=== PATIENT | female | born 1935 | race Caucasian/White ===

== ENCOUNTER 2016-06-11 14:57 | Emergency (ER) | payer MEDICARE, BC ==
[~2016-06-11] VITALS: Ht 152.4 cm; Wt 59.1 kg
[~2016-06-11 14:57] MED LIST: ASPIRIN 81M81 MG/TA2 PO; LEVOXYL0.075 MG PO; VALIUM 2MG T2 MG/TAB PO
[2016-06-11 14:59] VITALS: BP 174/91; PULSE 66; TEMP 97.7
[2016-06-11 16:04] LABS: BASO # 0.1 (0.0-0.2); EOS # 0.1 (0.0-0.7); GRAN # 6.2 (1.4-6.5); GRAN % 78.8 % (42.2-75.2); HEMATOCRIT 42.5 % (37.0-47.0); HEMOGLOBIN 13.7 g/dl (12.5-16.0); LYMPH # 1.2 (1.2-3.4); LYMPH % 15.1 % (20.0-51.0); MEAN CELL VOLUME 96 fl (80.0-100.0); MEAN CORPUSCULAR HEMOGLOBIN 31 pg (27.0-31.0); MEAN CORPUSCULAR HGB CONC 32 g/dl (33.0-37.0); MEAN PLATELET VOLUME 10.2 fl (7.4-10.4); MONO # 0.3 (0.1-0.6); MONO % 3.3 % (1.7-9.3); PLATELET COUNT 280 K/mm3 (130-400); RED BLOOD COUNT 4.44 M/mm3 (4.10-5.30); REDCELL DISTRIBUTION WIDTH-CV 13.2 % (11.5-14.5); WHITE BLOOD COUNT 7.9 K/mm3 (4.8-10.8)
[2016-06-11 16:16] LABS: ADJUSTED CALCIUM 9.2 mg/dL (8.4-10.2); ALANINE AMINOTRANSFERASE 25 U/L (9-52); ALKALINE PHOSPHATASE 90 U/L (50-136); ANION GAP 12 mmol/L (7-16); BILIRUBIN,TOTAL 0.7 mg/dL (0.0-1.0); BLOOD UREA NITROGEN 18 mg/dL (7-17); CALCIUM 9.2 mg/dL (8.4-10.2); CARBON DIOXIDE 27 mmol/L (22-30); CHLORIDE 101 mmol/L (98-107); CREATININE, serum 0.67 mg/dL (0.52-1.25); GLUCOSE 147 mg/dL (74-106); POTASSIUM 3.6 mmol/L (3.4-5.0); SODIUM 139 mmol/L (137-145); TOTAL PROTEIN 7.1 gm/dL (6.4-8.2)
[2016-06-11 16:29] LABS: TROPONIN-I < 0.012 ng/mL (0.000-0.034)
[2016-06-11 18:11] LABS: PH 7 (5-8); SQUAMOUS EPITHELIAL None Seen /hpf; URINE APPEARANCE Clear; URINE BACTERIA None Seen /hpf; URINE BILIRUBIN Negative (NEGATIVE); URINE BLOOD Negative (NEGATIVE); URINE COLOR Straw; URINE GLUCOSE Negative (NEGATIVE); URINE KETONE 1+ (NEGATIVE); URINE RBC 0-2 /hpf; URINE UROBILINOGEN Negative (NEGATIVE); URINE WBC 0-2 /hpf
[2016-06-11] MEDS ORDERED: ZOFRAN ODT4 MG PO (19:15)
[2016-06-11] MEDS ORDERED: ATIVAN 0.50.5 MG/TAB PO (19:15)
[2016-06-11] MEDS ORDERED: ANTIVERT 25MG25 MG PO (19:15)
== END 2016-06-11 19:40 | disposition home or self-care (01) ==
LOC: COL.ER 14:57
PROVIDERS: Emergency Medicine
DX: R42 Dizziness and giddiness (principal); E03.9 Hypothyroidism, unspecified; H55.00 Unspecified nystagmus; H93.19 Tinnitus, unspecified ear; Z86.73 Personal history of transient ischemic attack (TIA), and cerebral infarction without residual deficits
CPT/HCPCS: J2060; J2405; J7030

== ENCOUNTER → 2016-06-12 | Outpatient (CLI) | payer MEDICARE, BC ==
[~2016-06-12] MED LIST changes: +ANTIVERT 25MG25 MG PO; +ATIVAN 0.50.5 MG/TAB PO; +ZOFRAN ODT4 MG PO
== END ==
LOC: COL.RAD 12:53
DX: R42 Dizziness and giddiness (principal); R11.10 Vomiting, unspecified; R93.0 Abnormal findings on diagnostic imaging of skull and head, not elsewhere classified
CPT/HCPCS: A9585

== ENCOUNTER 2016-07-05 17:55 | Emergency (ER) | payer MEDICARE, BC ==
[~2016-07-05] VITALS: Ht 152.4 cm; Wt 59.1 kg
[2016-07-05 17:57] VITALS: TEMP 97.7
[2016-07-05 18:49] LABS: BASO # 0.1 (0.0-0.2); BASO % 1.2 % (0.0-2.0); EOS # 0.1 (0.0-0.7); EOS % 0.9 % (0-4.0); GRAN # 5.4 (1.4-6.5); GRAN % 81.6 % (42.2-75.2); HEMATOCRIT 40.8 % (37.0-47.0); HEMOGLOBIN 13.1 g/dl (12.5-16.0); LYMPH # 0.8 (1.2-3.4); LYMPH % 11.9 % (20.0-51.0); MEAN CELL VOLUME 96 fl (80.0-100.0); MEAN CORPUSCULAR HEMOGLOBIN 31 pg (27.0-31.0); MEAN CORPUSCULAR HGB CONC 32 g/dl (33.0-37.0); MEAN PLATELET VOLUME 10.2 fl (7.4-10.4); MONO # 0.3 (0.1-0.6); MONO % 3.8 % (1.7-9.3); PLATELET COUNT 279 K/mm3 (130-400); RED BLOOD COUNT 4.27 M/mm3 (4.10-5.30); REDCELL DISTRIBUTION WIDTH-CV 13.2 % (11.5-14.5); WHITE BLOOD COUNT 6.7 K/mm3 (4.8-10.8)
[2016-07-05 19:05] LABS: ADJUSTED CALCIUM 9.3 mg/dL (8.4-10.2); ALBUMIN 4.2 gm/dL (3.5-5.0); BILIRUBIN,TOTAL 0.7 mg/dL (0.0-1.0); CALCIUM 9.5 mg/dL (8.4-10.2); CREATININE, serum 0.72 mg/dL (0.52-1.25); POTASSIUM 3.6 mmol/L (3.4-5.0)
[2016-07-05 20:00] VITALS: BP 194/89; PULSE 61
== END 2016-07-05 20:02 | disposition home or self-care (01) ==
LOC: COL.ER 17:55
PROVIDERS: Emergency Medicine
DX: R42 Dizziness and giddiness (principal); R11.2 Nausea with vomiting, unspecified
CPT/HCPCS: J1200; J2765; J7040

== ENCOUNTER → 2016-11-26 | Outpatient (CLI) | payer MEDICARE, BC | LOC: MC.RAD 07:40 | DX: Z12.31 Encounter for screening mammogram for malignant neoplasm of breast (principal) ==

== ENCOUNTER 2017-01-01 17:10 | Emergency (ER) | payer MEDICARE, BC ==
[~2017-01-01] VITALS: Ht 152.4 cm; Wt 59.1 kg
[2017-01-01 17:20] VITALS: TEMP 98.1
[2017-01-01 18:43] LABS: BASO # 0.1 (0.0-0.2); BASO % 0.7 % (0.0-2.0); EOS % 0.2 % (0-4.0); GRAN # 7.6 (1.4-6.5); GRAN % 86.8 % (42.2-75.2); HEMATOCRIT 43.6 % (37.0-47.0); HEMOGLOBIN 13.9 g/dl (12.5-16.0); LYMPH # 0.8 (1.2-3.4); LYMPH % 8.8 % (20.0-51.0); MEAN CELL VOLUME 97 fl (80.0-100.0); MEAN CORPUSCULAR HEMOGLOBIN 31 pg (27.0-31.0); MEAN CORPUSCULAR HGB CONC 32 g/dl (33.0-37.0); MEAN PLATELET VOLUME 10.5 fl (7.4-10.4); MONO # 0.3 (0.1-0.6); PLATELET COUNT 279 K/mm3 (130-400); RED BLOOD COUNT 4.51 M/mm3 (4.10-5.30); WHITE BLOOD COUNT 8.7 K/mm3 (4.8-10.8)
[2017-01-01 18:48] LABS: ALANINE AMINOTRANSFERASE 26 U/L (9-52); ALBUMIN 4.2 gm/dL (3.5-5.0); ALKALINE PHOSPHATASE 88 U/L (50-136); ANION GAP 9 mmol/L (7-16); BILIRUBIN,TOTAL 0.7 mg/dL (0.0-1.0); BLOOD UREA NITROGEN 16 mg/dL (7-17); CALCIUM 9.2 mg/dL (8.4-10.2); CARBON DIOXIDE 25 mmol/L (22-30); CHLORIDE 104 mmol/L (98-107); CREATININE, serum 0.64 mg/dL (0.52-1.25); GLUCOSE 120 mg/dL (74-106); POTASSIUM 3.6 mmol/L (3.4-5.0); SODIUM 139 mmol/L (137-145); TOTAL PROTEIN 7.1 gm/dL (6.4-8.2)
[2017-01-01 18:54] LABS: C-REACTIVE PROTEIN < 0.5 mg/dL (0.0-0.9)
[2017-01-01] MEDS ORDERED: ATIVAN 0.50.5 MG/TAB PO (19:45)
[2017-01-01] MEDS ORDERED: ZOFRAN 4MG T4 MG/TAB PO (19:45)
[2017-01-01 19:49] VITALS: BP 167/79; PULSE 79
== END 2017-01-01 20:10 | disposition home or self-care (01) ==
LOC: COL.ER 17:10
PROVIDERS: Emergency Medicine
DX: H81.09 Meniere's disease, unspecified ear (principal)
CPT/HCPCS: J2060; J2405; J7030

== ENCOUNTER 2017-11-19 09:57 | Emergency (ER) | payer MEDICARE, BC ==
[~2017-11-19] VITALS: Ht 152.4 cm; Wt 59.1 kg
[~2017-11-19 09:57] MED LIST changes: +ZOFRAN 4MG T4 MG/TAB PO
[2017-11-19 10:02] VITALS: TEMP 97.8
[2017-11-19 10:42] LABS: BASO # 0.1 (0.0-0.2); BASO % 0.6 % (0.0-2.0); EOS # 0.1 (0.0-0.7); EOS % 1.1 % (0-4.0); GRAN # 6.4 (1.4-6.5); GRAN % 78.7 % (42.2-75.2); HEMATOCRIT 40.2 % (37.0-47.0); HEMOGLOBIN 12.9 g/dl (12.5-16.0); LYMPH # 1.1 (1.2-3.4); LYMPH % 13.5 % (20.0-51.0); MEAN CELL VOLUME 95 fl (80.0-100.0); MEAN CORPUSCULAR HEMOGLOBIN 31 pg (27.0-31.0); MEAN CORPUSCULAR HGB CONC 32 g/dl (33.0-37.0); MEAN PLATELET VOLUME 10.2 fl (7.4-10.4); MONO # 0.5 (0.1-0.6); MONO % 5.5 % (1.7-9.3); PLATELET COUNT 275 K/mm3 (130-400); RED BLOOD COUNT 4.22 M/mm3 (4.10-5.30); REDCELL DISTRIBUTION WIDTH-CV 13.6 % (11.5-14.5)
[2017-11-19 11:06] LABS: ALANINE AMINOTRANSFERASE 31 U/L (9-52); ALBUMIN 3.8 gm/dL (3.5-5.0); ALKALINE PHOSPHATASE 77 U/L (50-136); ANION GAP 11 mmol/L (7-16); AST,SGOT 28 U/L (15-37); BILIRUBIN,TOTAL 0.5 mg/dL (0.0-1.0); BLOOD UREA NITROGEN 17 mg/dL (7-17); CALCIUM 8.8 mg/dL (8.4-10.2); CARBON DIOXIDE 26 mmol/L (22-30); CHLORIDE 102 mmol/L (98-107); CREATININE, serum 0.62 mg/dL (0.52-1.25); GLUCOSE 107 mg/dL (74-106); LIPASE 53 U/L (23-300); POTASSIUM 3.6 mmol/L (3.4-5.0); SODIUM 139 mmol/L (137-145); TOTAL PROTEIN 6.7 gm/dL (6.4-8.2)
[2017-11-19 11:25] LABS: TROPONIN-I < 0.012 ng/mL (0.000-0.034)
[2017-11-19 13:02] LABS: COLLECTION METHOD CLEAN CATCH
[2017-11-19 13:17] LABS: AMORPHOUS CRYSTAL Present /uL; PH 8 (5-8); SQUAMOUS EPITHELIAL None Seen /hpf; URINE APPEARANCE Hazy; URINE BACTERIA None Seen /hpf; URINE BILIRUBIN Negative (NEGATIVE); URINE BLOOD Negative (NEGATIVE); URINE COLOR Straw; URINE GLUCOSE Negative (NEGATIVE); URINE KETONE Negative (NEGATIVE); URINE LEUKOCYTE ESTERASE Negative (NEGATIVE); URINE NITRATE Negative (NEGATIVE); URINE PROTEIN(semi-quant) Negative (NEGATIVE); URINE UROBILINOGEN Negative (NEGATIVE)
[2017-11-19] MEDS ORDERED: AMOXICILLIN 8751 TAB PO (13:37)
[2017-11-19] MEDS ORDERED: ATIVAN 0.50.5 MG/TAB PO (13:37)
[2017-11-19] MEDS ORDERED: ZOFRAN ODT4 MG PO (13:37)
[2017-11-19 14:29] VITALS: BP 152/75; PULSE 69
== END 2017-11-19 14:33 | disposition home or self-care (01) ==
LOC: COL.ER 09:57
PROVIDERS: Emergency Medicine
DX: R42 Dizziness and giddiness (principal); I10 Essential (primary) hypertension; H81.01 Meniere's disease, right ear; R53.1 Weakness
CPT/HCPCS: J2060; J2405; J7030

== ENCOUNTER → 2018-01-07 | Outpatient (CLI) | payer MEDICARE, BC ==
[~2018-01-07] MED LIST changes: +AMOXICILLIN 8751 TAB PO
== END ==
LOC: MC.RAD 15:09
DX: Z12.31 Encounter for screening mammogram for malignant neoplasm of breast (principal)

== ENCOUNTER 2018-07-01 17:58 | Emergency (ER) | payer MEDICARE, BC ==
[~2018-07-01] VITALS: Ht 152.4 cm; Wt 59.1 kg
[2018-07-01 18:08] VITALS: TEMP 97.7
[2018-07-01 18:32] LABS: BASO # 0.1 (0.0-0.2); EOS # 0.1 (0.0-0.7); EOS % 1.4 % (0-4.0); GRAN # 4.6 (1.4-6.5); GRAN % 74.3 % (42.2-75.2); HEMATOCRIT 39.6 % (37.0-47.0); HEMOGLOBIN 12.8 g/dl (12.5-16.0); LYMPH # 1.1 (1.2-3.4); LYMPH % 17.3 % (20.0-51.0); MEAN CELL VOLUME 95 fl (80.0-100.0); MEAN CORPUSCULAR HEMOGLOBIN 31 pg (27.0-31.0); MEAN CORPUSCULAR HGB CONC 32 g/dl (33.0-37.0); MEAN PLATELET VOLUME 10.1 fl (7.4-10.4); MONO # 0.3 (0.1-0.6); MONO % 5.5 % (1.7-9.3); PLATELET COUNT 278 K/mm3 (130-400); RED BLOOD COUNT 4.16 M/mm3 (4.10-5.30); REDCELL DISTRIBUTION WIDTH-CV 13.2 % (11.5-14.5)
[2018-07-01 18:46] LABS: ALBUMIN 4.1 gm/dL (3.5-5.0); BILIRUBIN,TOTAL 0.4 mg/dL (0.0-1.0); C-REACTIVE PROTEIN 0.7 mg/dL (0.0-0.9); CALCIUM 9.2 mg/dL (8.4-10.2); CREATININE, serum 0.64 (0.52-1.25); POTASSIUM 3.8 mmol/L (3.4-5.0); TOTAL PROTEIN 6.9 gm/dL (6.4-8.2)
[2018-07-01] MEDS ORDERED: BONINE25 MG PO (19:11)
[2018-07-01 19:24] LABS: COLLECTION METHOD CLEAN CATCH
[2018-07-01 19:31] LABS: PH 8 (5-8); SQUAMOUS EPITHELIAL 0-2 /hpf; URINE APPEARANCE Clear; URINE BACTERIA None Seen /hpf; URINE BILIRUBIN Negative (NEGATIVE); URINE BLOOD Negative (NEGATIVE); URINE COLOR Colorless; URINE GLUCOSE Negative (NEGATIVE); URINE KETONE Negative (NEGATIVE); URINE LEUKOCYTE ESTERASE Negative (NEGATIVE); URINE NITRATE Negative (NEGATIVE); URINE PROTEIN(semi-quant) Negative (NEGATIVE); URINE RBC 0-2 /hpf; URINE UROBILINOGEN Negative (NEGATIVE)
[2018-07-01 20:18] VITALS: BP 196/78; PULSE 66
== END 2018-07-01 20:19 | disposition home or self-care (01) ==
LOC: COL.ER 17:58
PROVIDERS: Family Medicine
DX: R42 Dizziness and giddiness (principal)
CPT/HCPCS: J2405; J2550; J7030

== ENCOUNTER → 2018-11-07 | Outpatient (CLI) | payer MEDICARE, BC ==
[~2018-11-07] MED LIST changes: +BONINE25 MG PO
== END ==
LOC: COL.RAD 11:46
DX: M47.26 Other spondylosis with radiculopathy, lumbar region (principal); M41.86 Other forms of scoliosis, lumbar region; M99.73 Connective tissue and disc stenosis of intervertebral foramina of lumbar region

== ENCOUNTER → 2018-11-19 | Outpatient (CLI) | payer MEDICARE, BC ==
[~2018-11-19] VITALS: Ht 152.4 cm; Wt 58.1 kg
[2018-11-19 09:02] VITALS: BP 179/86; PULSE 71
[2018-11-19 09:35] VITALS: BP 176/78; PULSE 63
== END ==
LOC: COL.RAD 08:45
DX: M51.16 Intervertebral disc disorders with radiculopathy, lumbar region (principal)
CPT/HCPCS: J3301

== ENCOUNTER 2018-11-29 17:55 | Emergency (ER) | payer MEDICARE, BC ==
[~2018-11-29] VITALS: Ht 152.4 cm; Wt 59.1 kg
[2018-11-29 18:01] VITALS: PULSE 70; TEMP 98
[2018-11-29 18:48] LABS: BASO # 0.1 (0.0-0.2); BASO % 0.8 % (0.0-2.0); EOS # 0.1 (0.0-0.7); EOS % 0.7 % (0-4.0); GRAN # 6.9 (1.4-6.5); GRAN % 78.3 % (42.2-75.2); HEMATOCRIT 40.5 % (37.0-47.0); HEMOGLOBIN 13.2 g/dl (12.5-16.0); LYMPH # 1.2 (1.2-3.4); LYMPH % 13.1 % (20.0-51.0); MEAN CELL VOLUME 96 fl (80.0-100.0); MEAN CORPUSCULAR HEMOGLOBIN 31 pg (27.0-31.0); MEAN CORPUSCULAR HGB CONC 33 g/dl (33.0-37.0); MEAN PLATELET VOLUME 10.3 fl (7.4-10.4); MONO # 0.6 (0.1-0.6); MONO % 6.4 % (1.7-9.3); PLATELET COUNT 309 K/mm3 (130-400); RED BLOOD COUNT 4.21 M/mm3 (4.10-5.30); REDCELL DISTRIBUTION WIDTH-CV 13.5 % (11.5-14.5)
[2018-11-29 19:09] LABS: BILIRUBIN,TOTAL 0.7 mg/dL (0.0-1.0); C-REACTIVE PROTEIN 1.1 mg/dL (0.0-0.9); CREATININE, serum 0.56 (0.52-1.25); POTASSIUM 3.8 mmol/L (3.4-5.0); TOTAL PROTEIN 6.6 gm/dL (6.4-8.2)
[2018-11-29] MEDS ORDERED: ATIVAN 0.50.5 MG/TAB PO (20:53)
[2018-11-29] MEDS ORDERED: ZOFRAN 4MG T4 MG/TAB PO (20:53)
[2018-11-29 21:28] VITALS: BP 158/75
== END 2018-11-29 21:25 | disposition home or self-care (01) ==
LOC: COL.ER 17:55
PROVIDERS: Emergency Medicine
DX: H81.09 Meniere's disease, unspecified ear (principal)
CPT/HCPCS: J2060; J2405; J7030

== ENCOUNTER → 2019-04-10 | Outpatient (CLI) | payer MEDICARE, BC | LOC: MC.RAD 02-16 10:00 | DX: Z12.31 Encounter for screening mammogram for malignant neoplasm of breast (principal) ==

== ENCOUNTER → 2019-12-03 | Outpatient (CLI) | payer MEDICARE, BC ==
[~2019-12-03] VITALS: Ht 152.4 cm; Wt 60.0 kg
[2019-12-03 07:19] VITALS: PULSE 75
[2019-12-03 08:05] VITALS: BP 180/90; PULSE 70
== END ==
LOC: COL.RAD 07:00
DX: M51.16 Intervertebral disc disorders with radiculopathy, lumbar region (principal)
CPT/HCPCS: J3301

== ENCOUNTER → 2019-12-21 | Outpatient (CLI) | payer MEDICARE, BC ==
--- NOTE | 2019-12-16 09:47 | NUR ---
PT HAS NO ANSWERING MACHINE AND NO ADDITIONAL NUMBER
[~2019-12-21] VITALS: Ht 152.4 cm; Wt 59.0 kg
[2019-12-21 12:25] VITALS: BP 164/70; PULSE 76
[2019-12-21 13:22] VITALS: BP 163/81; PULSE 65
--- NOTE | 2019-12-21 14:05 | NUR ---
PT WAS TAKEN IN WHEELCHAIR TO LOBBY. WENT AND BROUGHT CAR AROUND. INSTRUCTED THAT PT HAS RESOLVING NUMBNESS IN HIS RIGHT FOOT.
== END ==
LOC: COL.RAD 11:45
DX: M51.16 Intervertebral disc disorders with radiculopathy, lumbar region (principal)
CPT/HCPCS: J3301

== ENCOUNTER → 2020-02-23 | Outpatient (CLI) | payer MEDICARE, BC ==
[~2020-02-23] VITALS: Ht 152.4 cm; Wt 60.2 kg
[~2020-02-23] MED LIST changes: +ULTRAM 50MG TAB50 MG PO
[2020-02-23 13:27] VITALS: BP 167/90; PULSE 72
[2020-02-23 14:45] VITALS: BP 151/75; PULSE 69
== END ==
LOC: COL.RAD 13:15
DX: M51.36 Other intervertebral disc degeneration, lumbar region (principal)
CPT/HCPCS: J3301

== ENCOUNTER 2020-08-02 12:12 | Emergency (ER) | payer MEDICARE, BC ==
[~2020-08-02] VITALS: Ht 152.4 cm; Wt 59.1 kg
[2020-08-02 12:44] LABS: BASO # 0.1 (0.0-0.2); BASO % 0.9 % (0.0-2.0); EOS % 0.4 % (0-4.0); GRAN # 6.1 (1.4-6.5); GRAN % 80.4 % (42.2-75.2); HEMOGLOBIN 13.2 g/dl (12.5-16.0); LYMPH % 12.8 % (20.0-51.0); MEAN CELL VOLUME 97 fl (80.0-100.0); MEAN CORPUSCULAR HEMOGLOBIN 32 pg (27.0-31.0); MEAN CORPUSCULAR HGB CONC 33 g/dl (33.0-37.0); MONO # 0.4 (0.1-0.6); MONO % 5.1 % (1.7-9.3); PLATELET COUNT 324 K/mm3 (130-400); RED BLOOD COUNT 4.12 M/mm3 (4.10-5.30); REDCELL DISTRIBUTION WIDTH-CV 12.2 % (11.5-14.5)
[2020-08-02 12:58] LABS: ALBUMIN 4.2 gm/dL (3.5-5.0); BILIRUBIN,TOTAL 0.5 mg/dL (0.0-1.0); CALCIUM 9.1 mg/dL (8.4-10.2); POTASSIUM 3.6 mmol/L (3.4-5.0); TOTAL PROTEIN 7.2 gm/dL (6.4-8.2)
[2020-08-02 12:59] LABS: C-REACTIVE PROTEIN 0.5 mg/dL (0.0-0.9)
[2020-08-02 13:00] LABS: INR 1.1 (0.8-3.0); PROTHROMBIN TIME 12.2 SECONDS (9.7-12.8)
[2020-08-02 13:08] LABS: CREATININE, serum 0.55 (0.52-1.25)
[2020-08-02 16:18] VITALS: BP 148/64; PULSE 71; TEMP 98.5
== END 2020-08-02 15:50 | disposition home or self-care (01) ==
LOC: COL.ER 12:12
PROVIDERS: Family Medicine
DX: I77.3 Arterial fibromuscular dysplasia (principal); E03.9 Hypothyroidism, unspecified; Z86.73 Personal history of transient ischemic attack (TIA), and cerebral infarction without residual deficits; Z79.890 Hormone replacement therapy
CPT/HCPCS: J2550; J7120; Q9967

== ENCOUNTER → 2022-04-26 | Outpatient (CLI) | payer MEDICARE, BC | LOC: MC.RAD 14:11 | DX: Z12.31 Encounter for screening mammogram for malignant neoplasm of breast (principal) ==

== ENCOUNTER 2023-09-01 21:08 | Emergency (ER) | payer MEDICARE, BC ==
[~2023-09-01] VITALS: Ht 152.4 cm; Wt 56.5 kg
[~2023-09-01 21:08] MED LIST changes: +PROMETHAZINE12.5 M5 PO; +SYNTHROID0.075 MG/T PO
[2023-09-01 21:16] VITALS: TEMP 98
[2023-09-01] MEDS ORDERED: NS 1,000 ML IV ONE (21:45)
[2023-09-01 21:49] LABS: BASO # 0.1 K/mm3 (0.0-0.2); BASO % 1.1 % (0.0-2.0); EOS # 0.2 K/mm3 (0.0-0.7); EOS % 3.2 % (0.0-4.0); GRAN # 3.7 K/mm3 (1.4-6.5); GRAN % 50.6 % (42.2-75.2); HEMATOCRIT 39.4 % (37.0-47.0); HEMOGLOBIN 12.6 g/dl (12.5-16.0); LYMPH # 2.6 K/mm3 (1.2-3.4); LYMPH % 35.7 % (20.0-51.0); MEAN CELL VOLUME 98 fl (80.0-100.0); MEAN CORPUSCULAR HEMOGLOBIN 31 pg (27-31); MEAN CORPUSCULAR HGB CONC 32 g/dl (33.0-37.0); MEAN PLATELET VOLUME 10.5 fl (7.4-10.4); MONO # 0.7 K/mm3 (0.1-0.6); PLATELET COUNT 266 K/mm3 (130-400); RED BLOOD COUNT 4.03 M/mm3 (4.10-5.30); REDCELL DISTRIBUTION WIDTH-CV 13.3 % (11.5-14.5)
[2023-09-01 21:52] LABS: INR 1.1 (0.8-3.0); PROTHROMBIN TIME 11.7 SECONDS (9.7-12.8)
[2023-09-01 22:02] LABS: ALBUMIN 3.6 g/dL (3.4-4.8); BILIRUBIN,TOTAL 0.2 mg/dL (0.2-1.2); CALCIUM 9.7 mg/dL (8.4-10.2); CREATININE, serum 0.81 mg/dL (0.57-1.11); POTASSIUM 3.5 mEq/L (3.5-4.5); TOTAL PROTEIN 6.1 g/dl (6.2-8.1)
[2023-09-01] MEDS ORDERED: NS 64 ML IV SCH (22:06)
[2023-09-01] MEDS ORDERED: Iohexol 350 - 100 ML VIAL IV ONE (22:06)
[2023-09-01 23:04] LABS: COLLECTION METHOD CLEAN CATCH
[2023-09-01 23:10] LABS: PH 7.5 (5.0-8.5); URINE APPEARANCE CLEAR (CLEAR/HAZY); URINE BLOOD NEGATIVE (NEGATIVE); URINE COLOR YELLOW (YELLOW); URINE GLUCOSE NEGATIVE (NEGATIVE); URINE KETONE NEGATIVE (NEGATIVE); URINE NITRATE NEGATIVE (NEGATIVE); URINE PROTEIN(semi-quant) NEGATIVE (NEGATIVE); URINE UROBILINOGEN 0.2 E.U/dL (0.2-1.0)
[2023-09-02 00:05] VITALS: BP 164/65; PULSE 56
== END 2023-09-02 00:05 | disposition home or self-care (01) ==
LOC: COL.ER 21:08 → MEDICAL 09-02 17:16
PROVIDERS: Personal Emergency Response Attendant
DX: R42 Dizziness and giddiness (principal)
CPT/HCPCS: J7030; Q9967

== ENCOUNTER 2023-09-02 17:30 | Inpatient (IN) | payer MEDICARE, BC ==
[2023-09-02] MEDS ORDERED: amLODIPine 5 MG TAB PO ONE (18:15)
--- NOTE | 2023-09-02 18:46 | NUR ---
Pt arrived to medical floor by wheelchair with family at bedside. Admission intake and assessment complete. Home medications updated. VSS with a BP of 194/68. Dr. Hinson notified by phone. Pt A&O x4. Fall precautions intiated. Oriented pt and family to room, call light, and bathroom. MATE SHIP Dasia started 22g IV into Rt forearm. Pt tolerated well with no complications. Pt denies pain/discomfort. No skin issues noted at this time. BLE edema noted with +1 pitting edema. Pt has no request at this time. Call light within reach and fall precautions in place.
[2023-09-02 18:52] VITALS: BP 194/68; PULSE 60; TEMP 97.9
[2023-09-02 19:06] VITALS: BP 198/74; PULSE 55; TEMP 98.1
[2023-09-02] MEDS ORDERED: *Potassium Replacement Protocol MC SCH (19:15)
[2023-09-02 19:20] LABS: HEMATOCRIT 40.7 % (37.0-47.0); HEMOGLOBIN 13.4 g/dl (12.5-16.0); MEAN CORPUSCULAR HEMOGLOBIN 31 pg (27-31); MEAN CORPUSCULAR HGB CONC 33 g/dl (33.0-37.0); MEAN PLATELET VOLUME 10.2 fl (7.4-10.4); PLATELET COUNT 256 K/mm3 (130-400); RED BLOOD COUNT 4.36 M/mm3 (4.10-5.30); REDCELL DISTRIBUTION WIDTH-CV 13.5 % (11.5-14.5)
[2023-09-02 19:29] LABS: MEAN CELL VOLUME 93 fl (80.0-100.0)
[2023-09-02 19:34] LABS: CALCIUM 9.2 mg/dL (8.4-10.2); CREATININE, serum 0.72 mg/dL (0.57-1.11); POTASSIUM 3.1 mEq/L (3.5-4.5)
[2023-09-02 19:45] LABS: CHOLESTEROL RISK RATIO 3.5
[2023-09-02] MEDS ORDERED: Potassium Bicarbonate/Citrate 20 MEQ Effervescent TAB PO SCH (19:45)
[2023-09-02 20:40] VITALS: BP 181/63
[2023-09-02 21:00] VITALS: BP_SYST 181
[2023-09-02] MEDS ORDERED: Lisinopril 5 MG TAB PO ONE (21:30)
[2023-09-02] MEDS ORDERED: Meclizine 25 MG TAB PO PRN (22:00)
[2023-09-02] MEDS ORDERED: Atorvastatin 40 MG TAB PO ONE (22:00)
[2023-09-02 22:59] VITALS: BP 176/79; PULSE 72; TEMP 98.5
[2023-09-03] VITALS (11 sets, daily range): BP systolic 132–176; BP diastolic 65–77; PULSE 55–64; TEMP 98–98.8
[2023-09-03] MEDS ORDERED: Heparin 5,000 UNITS/ML 1 ML VIAL SQ SCH
--- NOTE | 2023-09-03 00:23 | NUR ---
patient lying in bed, alert and oriented x4. denies chest pain and shortness of breath. IV in Rf is patent, site CDI. general small scattered bruising in extremities, BLE nonpitting edema, mild weakness in right lower extremity noted able to transfer to commode, ambulated x1 assist to bedside commode and back in bed . 2126- Dr. Hinson notified of elevated BP, new orders received and initiated. potassium replaced per protocol. pt has no further needs, questions, or concerns at this time. fall precautions in place, call light within reach. family at bedside. will continue to monitor.
[2023-09-03 06:43] LABS: BASO # 0.1 K/mm3 (0.0-0.2); BASO % 0.9 % (0.0-2.0); EOS # 0.2 K/mm3 (0.0-0.7); EOS % 2.6 % (0.0-4.0); GRAN % 51.4 % (42.2-75.2); HEMOGLOBIN 12.6 g/dl (12.5-16.0); LYMPH # 2.7 K/mm3 (1.2-3.4); MEAN CELL VOLUME 95 fl (80.0-100.0); MEAN CORPUSCULAR HEMOGLOBIN 31 pg (27-31); MEAN CORPUSCULAR HGB CONC 32 g/dl (33.0-37.0); MEAN PLATELET VOLUME 10.7 fl (7.4-10.4); MONO # 0.8 K/mm3 (0.1-0.6); MONO % 9.8 % (1.7-9.3); PLATELET COUNT 262 K/mm3 (130-400); REDCELL DISTRIBUTION WIDTH-CV 13.6 % (11.5-14.5)
[2023-09-03 07:03] LABS: ALBUMIN 3.2 g/dL (3.4-4.8); CALCIUM 9.5 mg/dL (8.4-10.2); CREATININE, serum 0.77 mg/dL (0.57-1.11); MAGNESIUM 1.9 mg/dL (1.6-2.6); PHOSPHOROUS 2.6 mg/dL (2.3-4.7); POTASSIUM 3.6 mEq/L (3.5-4.5)
--- NOTE | 2023-09-03 08:10 | NUR ---
Patient resting in bed with eyes shut. Awakens easily to verbal stimulation. Denies any new concers or complaints at this time. Slight weakness to right upper and lower extremity noted. Patient and family feel this weakness has improved since initial presentation. Call light left within reach.
[2023-09-03] MEDS ORDERED: Lisinopril 5 MG TAB PO SCH (09:00)
[2023-09-03] MEDS ORDERED: *Potassium Replacement Protocol MC SCH (10:30)
[2023-09-03] MEDS ORDERED: Potassium Bicarbonate/Citrate 20 MEQ Effervescent TAB PO SCH (10:30)
--- NOTE | 2023-09-03 12:40 | NUR ---
Coding Compliance Auditor spoke with PT/OT after evaluation and they do not recommend patient return home at this time. They advised patient might be a good candidate for IPR. SONAL attended clinical rounds with the team and patient will have an MRI this afternoon. SONAL met with patient and her daughter, Maye (ph#[phone]) to complete initial intake. Patient lives alone in [place] and advised her son, Raymundo (ph#[phone]) is an contract attorney and lives locally. Patient sees Dr. Carbone for primary care and gets medications from [facility]. Patient has two steps in to the home with a railing. Patient has a walker available at home and also uses walking sticks when going distances. Patient has grab bars and a shower seat in her bathroom. Patient is normally independent with ADLS. Patient is able to drive, however does not drive at night. Patient stated her son, Raymundo is her DPOA-HC. Patient is agreeable to IPR screen, which Hospitalist discussed with her. SONAL contacted [facility] IPR Director to give referral. Discharge Plan: IPR screen
--- NOTE | 2023-09-03 15:36 | NUR ---
D: Pocket And Pulley Machine Operator stopped by room on rounds. A: Pt was resting and content with family in the room. Pt has a local spiritism with a good journeyman pressman. Pt appreciated the visit, but no needs right now. P: Pocket And Pulley Machine Operator informed pt that if she needed anything from the synthetic gem press operator area to let her nurse know. Pocket And Pulley Machine Operator will follow up as needed.
[2023-09-03] MEDS ORDERED: Clopidogrel 75 MG TAB PO SCH (16:38)
[2023-09-03] MEDS ORDERED: Atorvastatin 40 MG TAB PO SCH (21:00)
--- NOTE | 2023-09-03 22:50 | NUR ---
UPON SHIFT ASSESSMENT, KIM WAS IN BED AND AXO X 4. FAMILY VISITING BEDSIDE. AFFECT IS CHEERFUL. NUERO CHECKS WNL. NO UNIILATERAL WEAKNESS, DYSPHGIA OR FACIAL DROOPING NOTED. BP SLIGHTLY ELEVATED, OTHERWISE, VITAL SIGNS ARE WNL. PATIENT C/O OF INTERMITENT RT LEG SPASM. DVT SCREENING WNL. PATIENT STATES NO OTHER NEEDS AT THIS TIME.
[2023-09-04 00:55] VITALS: BP_SYST 165
[2023-09-04 03:18] VITALS: BP 145/78; PULSE 58; TEMP 98.1
[2023-09-04 05:05] VITALS: BP_SYST 145
[2023-09-04 06:55] LABS: BASO # 0.1 K/mm3 (0.0-0.2); EOS # 0.3 K/mm3 (0.0-0.7); EOS % 3.9 % (0.0-4.0); GRAN # 3.6 K/mm3 (1.4-6.5); GRAN % 49.2 % (42.2-75.2); HEMATOCRIT 38.6 % (37.0-47.0); HEMOGLOBIN 12.5 g/dl (12.5-16.0); LYMPH # 2.7 K/mm3 (1.2-3.4); LYMPH % 37.5 % (20.0-51.0); MEAN CELL VOLUME 95 fl (80.0-100.0); MEAN CORPUSCULAR HEMOGLOBIN 31 pg (27-31); MEAN CORPUSCULAR HGB CONC 32 g/dl (33.0-37.0); MEAN PLATELET VOLUME 10.8 fl (7.4-10.4); MONO # 0.6 K/mm3 (0.1-0.6); MONO % 8.1 % (1.7-9.3); PLATELET COUNT 243 K/mm3 (130-400); RED BLOOD COUNT 4.08 M/mm3 (4.10-5.30); REDCELL DISTRIBUTION WIDTH-CV 13.2 % (11.5-14.5)
[2023-09-04 07:20] VITALS: BP 178/76; PULSE 58; TEMP 98.1
[2023-09-04 07:30] LABS: CALCIUM 9.8 mg/dL (8.4-10.2); CREATININE, serum 0.81 mg/dL (0.57-1.11); MAGNESIUM 1.9 mg/dL (1.6-2.6); PHOSPHOROUS 3.1 mg/dL (2.3-4.7); POTASSIUM 3.8 mEq/L (3.5-4.5)
[2023-09-04] MEDS ORDERED: Potassium Bicarbonate/Citrate 20 MEQ Effervescent TAB PO ONE (08:30)
--- NOTE | 2023-09-04 09:45 | NUR ---
Assessment completed. Pt A/O x4. Assist x1 to chair with walker. Right foot drags some with ambulation. Denies pain. Family at bedside.
[2023-09-04 09:52] VITALS: BP_SYST 178
[2023-09-04] MEDS ORDERED: Lisinopril 10 MG TAB PO ONE (10:00)
[2023-09-04] MEDS ORDERED: ASPIRIN E.C. 8181 MG PO (10:27)
[2023-09-04] MEDS ORDERED: LIPITOR 40MG TA40 MG PO (10:27)
[2023-09-04] MEDS ORDERED: ZESTRIL 10MG10 MG PO (10:27)
[2023-09-04] MEDS ORDERED: PLAVIX 75MG TAB75 MG PO (10:27)
[2023-09-04 11:29] VITALS: BP 113/63; PULSE 60; TEMP 97.8
--- NOTE | 2023-09-04 12:59 | NUR ---
Pt transferred via w/c [facility], room 333. INT d/c'd with cath tip intact. Family member going to go home to get patient personal belongings and clothes. Report called to LASHAUN Mata.
--- NOTE | 2023-09-04 13:10 | NUR ---
Patient to discharge to [facility] today.
[2023-09-05] MEDS ORDERED: Lisinopril 10 MG TAB PO SCH (09:00)
== END 2023-09-04 13:01 | DRG 65 ==
LOC: MEDICAL 17:30
PROVIDERS: Internal Medicine; ADMIT Internal Medicine
DX: I63.89 Other cerebral infarction (principal); I69.351 Hemiplegia and hemiparesis following cerebral infarction affecting right dominant side; E03.9 Hypothyroidism, unspecified; E87.6 Hypokalemia; R29.702 NIHSS score 2; R42 Dizziness and giddiness; I10 Essential (primary) hypertension; Z79.890 Hormone replacement therapy; Z88.8 Allergy status to other drugs, medicaments and biological substances; Z23 Encounter for immunization
CPT/HCPCS: G0378; G0379; J1644

== ENCOUNTER 2023-09-04 11:16 | Inpatient (IN) | payer MEDICARE, BC ==
[~2023-09-04 11:16] MED LIST changes: +ASPIRIN E.C. 8181 MG PO; +LIPITOR 40MG TA40 MG PO; +PLAVIX 75MG TAB75 MG PO; +ZESTRIL 10MG10 MG PO
[2023-09-04 13:00] VITALS: BP_SYST 136
[2023-09-04 13:59] VITALS: BP 136/72; PULSE 59; TEMP 97.5
[2023-09-04] MEDS ORDERED: Polyethylene Glycol 3350 17 GM PDS PO PRN (14:30)
[2023-09-04] MEDS ORDERED: Sennosides/Docusate 8.6-50 MG TAB PO PRN (14:30)
[2023-09-04] MEDS ORDERED: Naloxone 0.4 MG/ML VIAL IV PRN (14:30)
[2023-09-04] MEDS ORDERED: Meclizine 25 MG TAB PO PRN (14:30)
[2023-09-04] MEDS ORDERED: Acetaminophen 325 MG TAB PO PRN (14:30)
[2023-09-04] MEDS ORDERED: Docusate Sodium 100 MG CAP PO PRN (14:30)
--- NOTE | 2023-09-04 15:46 | NUR ---
SONAL met with patient and daughter in law in room to complete inital assessment for discharge planning. Patient verified that she lives alone in [place]. There are two steps into home with railing. She sees Dr Carbone as her PCP and uses [facility]. Patient has a walker, walking sticks for distances, shower seat, and grab bars. Patient reports being independent with ADLs and continues to drive herself to appointments. She has identified her son Raymundo as her DPOA. Daughter in law shared that patient has a basement in her home where her freezer is located. Patient has a lift chair for the stairway that she rides instead of using steps. Patient's just in June and patient has been adjusting to living alone. Plan is to return home at discharge. Discharge plan: Home pending progress with therapy
--- NOTE | 2023-09-04 16:58 | NUR ---
PATIENT ARRIVED TO FLOOR AT 1315 FROM MEDICAL. ADMISSION AND ASSESSMENT COMPLETED.VSS. PATIENT SETTLED IN TO BED AND ORIANTED TO ROOM AND TYPICAL ROUTIN FOR IPR PATIENTS. FALL PRECAUTIONS IN PLACE AND CALL LIGHT IN REACH.
[2023-09-04 17:05] VITALS: BP_SYST 136
[2023-09-04 17:50] VITALS: BP 124/73; PULSE 70; TEMP 98.2
--- NOTE | 2023-09-04 19:00 | NUR ---
Received change of shift report from day shift nurse. Patient resting in bed, family member at bedside. Exit alarm on, call light within patient's reach. No needs or complaints reported at time of report.
[2023-09-04 21:00] VITALS: BP_SYST 124
[2023-09-04] MEDS ORDERED: Atorvastatin 40 MG TAB PO SCH (21:00)
[2023-09-05 05:55] VITALS: BP 149/69; PULSE 61; TEMP 97.9
[2023-09-05 06:30] VITALS: BP_SYST 149
--- NOTE | 2023-09-05 07:02 | NUR ---
Change of shift report given to day shift nurseEsperanza. Patient resting in bed, exit alarm on, call light within reach.
--- NOTE | 2023-09-05 08:00 | NUR ---
SHIFT ASSESSMENT COMPLETE. VSS. PATIENT UP TO RECLINER AWAITING THERAPY FOR THE DAY. ALL MORNING MEDS GIVEN PER ORDERS. PATIENT REPORT NO PIAN AT THIS TIME. FALL PRECAUTIONS IN PLACE AND CALL LIGHT IN REACH.
[2023-09-05] MEDS ORDERED: Clopidogrel 75 MG TAB PO SCH (09:00)
[2023-09-05] MEDS ORDERED: Lisinopril 10 MG TAB PO SCH (09:00)
[2023-09-05 17:50] VITALS: BP 141/81; PULSE 62; TEMP 97.6
[2023-09-05 19:30] VITALS: BP_SYST 141
--- NOTE | 2023-09-05 19:34 | NUR ---
RECEIVED CHANGE OF SHIFT REPORT FROM DAY SHIFT NURSE. PATIENT RESTING IN BED, EXIT ALARM ON, CALL LIGHT WITHIN PATIENT'S REACH.
--- NOTE | 2023-09-05 20:00 | NUR ---
Patient resting in bed with exit alarms on, call light within patient's reach. No facial droop observed at this time, no problems with swallowing reported, no choking observed with taking oral medications/drinking through straw. Denies any complaints at this time.
--- NOTE | 2023-09-06 02:47 | NUR ---
Patient continues to rest in bed with eyes closed with even/nonlabored breathing. Exit alarm on, call light within patient's reach.
[2023-09-06 05:24] VITALS: BP 153/67; PULSE 57; TEMP 98
[2023-09-06 07:00] VITALS: BP_SYST 153
--- NOTE | 2023-09-06 07:19 | NUR ---
Change of shfit report given to day shift nurseEsperanza.
--- NOTE | 2023-09-06 08:00 | NUR ---
SHIFT ASSESSMENT COMPLETE. VSS. PATIENT UP TO RECLINER FINISHING BREAKFAST AND GETTING READY TO START THERAPY FOR THE DAY. PATIENT REPORTS NO PAIN AT THIS TIME. CHAIR ALARM ON AND CALL LIGHT IN REACH.
--- NOTE | 2023-09-06 14:28 | NUR ---
sheetmetal worker met with pt and her daughter to check-in. She reports no concerns or needs. SW discussed need for family meeting on Saturday at 10:30an. Pt was agreebable to this. Daughter reports she will text their family group chat as there are about 4 siblings who would need to be called. Daughter reports if pt's son, Deangelo cannot attend in person; he would probably send his to get information. Daughter reports pt's oldest daughter, Shari works from home and would be moving to provide assistance with pt and could benefit from attending or hearing the meeting details. She will confirm with everyone and let SW know. Discharge Plan: re-eval
[2023-09-06 16:59] VITALS: BP 153/69; PULSE 61; TEMP 97.7
[2023-09-06 19:23] VITALS: BP_SYST 153
--- NOTE | 2023-09-06 22:05 | NUR ---
patient sitting in recliner, alert and oriented x4. denies chest pain and shortness of breath. ambulated with steady gait and walker, independently changed clothes, performed oral care, and back in bed with SBA. slight right foot drag noticed during ambulation. pt has no further needs, questions or concerns at this time. fall precautions in place, call light within reach. will continue to monitor.
[2023-09-07 05:41] VITALS: BP 109/70; PULSE 77; TEMP 98.1
[2023-09-07 07:00] VITALS: BP_SYST 109
--- NOTE | 2023-09-07 14:30 | NUR ---
Data: Patient was sleeping in recliner. Patient woke when Rubber Tile Floor Layer entered room to ask if she would like a visit. Patient accepted Rubber Tile Floor Layer visit. Patient stated she was cold. Patient spoke of her Daughter, Grandchild, and Great-Grandchild. They have visited her this week, but will need to return to [place] tomorrow. Daughter Diann arrived during visit. Assessment: Patient is grateful for the week of having her family visit. Patient is sad about her family having to return home. She has some anticipatory grief about how much she will miss them. Plan of Care: Rubber Tile Floor Layer provided a blanket for Patient; supportive listening; and prayer for both Patient and Daughter. Both thanked Rubber Tile Floor Layer for the visit. Chaplains will remain available as needed/requested while Patient is admitted to this hospital. Rubber Tile Floor Layer encouraged Patient to call RN when she is ready to lower her recliner foot rest because it is difficult for Patient to reach the handle.
[2023-09-07 16:23] VITALS: BP 196/73; PULSE 58; TEMP 97.7
[2023-09-07] MEDS ORDERED: Lisinopril 10 MG TAB PO ONE (17:15)
[2023-09-07 19:43] VITALS: BP 149/67
[2023-09-07 21:20] VITALS: BP_SYST 149
--- NOTE | 2023-09-07 21:24 | NUR ---
patient up to recliner, alert and oriented x4. denies chest pain and shortness of breath. ambulates with steady gait and walker to bathroom, changed own clothes, night time care performed and back in bed. pt has no further needs, questions or concerns at this time. fall precautions in place, call light within reach. will continue to monitor.
[2023-09-08 05:36] VITALS: BP 137/59; PULSE 71; TEMP 98.1
[2023-09-08 07:00] VITALS: BP_SYST 137
[2023-09-08 16:26] VITALS: BP 120/58; PULSE 66; TEMP 98.4
[2023-09-08 19:00] VITALS: BP_SYST 120
--- NOTE | 2023-09-08 19:53 | NUR ---
ASSISTED PATIENT TO RESTROOM. NO WEAKNESS IN GAIT NOTED.
--- NOTE | 2023-09-08 21:00 | NUR ---
UPPON SHIFT ASSESSMENT, PATIENT WAS IN BEDSIDE RECLINER WITH VISITORS. SHE IS PLLEASANT AND AXO X 4 . NO ASSYMETRICAL WEAKNESS NOTED AND PATIENT AMBULATED TO BATHROOM WITH GOOD EFFORT AND STEADY GAIT WITH WALKER. VS ARE WNL. PATIENT DENIES PAIN OR NEEDS AT THIS TIME.
[2023-09-09 05:25] VITALS: BP 160/64; PULSE 64; TEMP 97.6
[2023-09-09 06:55] VITALS: BP_SYST 160
--- NOTE | 2023-09-09 08:40 | NUR ---
PT SITTING UP IN CHAIR EATING BREAKFAST. ALERT AND ORIENTEDX4. NO COMPLAINTS OF PAIN AT THIS TIME. ASSESSED AND GAVE MORNING MEDS. HELPED PT GET DRESSED. NO OTHER COMPLAINTS AT THIS TIME. CALL LIGHT WITHIN REACH.
[2023-09-09] MEDS ORDERED: Lisinopril 10 MG TAB PO ONE (12:15)
--- NOTE | 2023-09-09 15:23 | NUR ---
SW met with patient to check in after weekend. Patient reports she is doing well with therapy and very satisfied with her care. She is looking forward to the family meeting scheduled on Saturday at 1030 and hopeful to go home soon. Discharge plan: re-eval
--- NOTE | 2023-09-09 16:20 | NUR ---
Admission QIM scores were reviewed by the team. Code of 4 chosen for oral hygiene was determined by team discussion to be the most usual performance before interventions for this patient during the assessment period. Code of 6 chosen for sit to lying was determined by team discussion to be the most usual performance before interventions for this patient during the assessment period. Code of 6 chosen for lying to sitting side of bed was determined by team discussion to be the most usual performance before interventions for this patient during the assessment period. Code of 3 chosen for chair to bed was determined by team discussion to be the most usual performance for this patient during the discharge assessment period. Code of 3 chosen for walking 10 feet was determined by team discussion to be the most usual performance for this patient during the discharge assessment period. Code of 3 chosen for walking 50 feet w/ 2 turns was determined by team discussion to be the most usual performance before interventions for this patient during the discharge assessment period.--Vee Chavez, PD
[2023-09-09 17:04] VITALS: BP 160/77; PULSE 63; TEMP 98.1
[2023-09-09 19:25] VITALS: BP_SYST 160
--- NOTE | 2023-09-09 19:25 | NUR ---
RECEIVED CHANGE OF SHIFT REPORT FROM DAY SHIFT NURSE. PATIENT UP IN CHAIR, EXIT ALARM ON, HAS FAMILY IN ROOM. PATIENT DENIES ANY NEEDS OR COMPLAINTS AT THIS TIME. CALL LIGHT WITHIN PATIENT'S REACH.
--- NOTE | 2023-09-09 20:00 | NUR ---
PATIENT UP IN CHAIR, DENIES CHEST PAIN/SHORTNESS OF AIR/NAUSEA AT THIS TIME. UP TO BATHROOM WITH WW AND GB WITH STEADY. SPEECH CLEAR AND APPROPRIATE TO CONVERSATION WITH STAFF. DID NOT WANT TO GO TO BED AT THIS TIME BUT CHANGED OUT OF STREET CLOTHES INTO [facility] PER SELF WITH NO ASSISTANCE FROM STAFF. CHAIR EXIT ALARM ON WHILE UP IN CHAIR, CALL LIGHT WITHIN PATIENT'S REACH.
[2023-09-10] VITALS (7 sets, daily range): BP systolic 140–185; BP diastolic 52–75; PULSE 65–70; TEMP 97.8–98.9
--- NOTE | 2023-09-10 07:05 | NUR ---
CHANGE OF SHIFT REPORT GIVEN TO DAY SHIFT NURSERAFAELA.
--- NOTE | 2023-09-10 08:21 | NUR ---
GOT PT UP TO BATHROOM, PT VOIDED. PT NOW SITTING UP IN CHAIR EATINF BREAKFAST. ALERT AND ORIENTEDX4. NO COMPLAINTS OF PAIN. ASSESSED AND GAVE MORNING MEDS. NO OTHER COMPLAINTS AT THIS TIME CALL LIGHT WITHIN REACH.
[2023-09-10] MEDS ORDERED: Lisinopril 20 MG TAB PO SCH (09:00)
[2023-09-10] MEDS ORDERED: hydrALAZINE 25 MG TAB PO SCH (18:23)
--- NOTE | 2023-09-10 18:45 | NUR ---
RECEIVED CHANGE OF SHIFT REPORT FROM DAY SHIFT NURSE.
[2023-09-11 05:12] VITALS: BP 152/70; PULSE 69; TEMP 98.3
--- NOTE | 2023-09-11 06:56 | NUR ---
CHANGE OF SHIFT REPORT GIVEN TO DAY SHIFT NURSEMARV.
[2023-09-11 07:18] VITALS: BP_SYST 152
--- NOTE | 2023-09-11 10:38 | NUR ---
Pt resting in bed with no pain at this time. Steady gait to bathroom SBA and walker. Slight right sided weakness, tolerating deit well, BP's within normal limits. Scattered bruising on bilateral arms, no needs at this time, will continue to monitor.
[2023-09-11 11:03] VITALS: BP 180/74; PULSE 69; TEMP 97.6
[2023-09-11 11:26] VITALS: BP 168/74
[2023-09-11] MEDS ORDERED: Lisinopril 10 MG TAB PO ONE (11:45)
--- NOTE | 2023-09-11 13:35 | NUR ---
SW attended team conference meeting. Discussed patient's progress with therapy and set discharge date for tomorrow, 09/11. SW attended family meeting with patient, son and dtr in law, with daughter's on speaker phone. Team discussed patient's progress during IPR stay. Famiy and patient agreeable to discharge tomorrow to home with OP PT. Patient has used [facility] in the past and would like referral to there to continue therapy. Daughter asked for information on life alert systems. SW met with patient to review notes from team conference. Reviewed referral to [facility] for continued therapy. Provided information on life alert systems. Reviewed Medicare IM form. Patient agreeable to discharge and signed form. Original on chart and copy to patient. Discharge plan: Home with OP PT
[2023-09-11 19:00] VITALS: BP_SYST 164
[2023-09-11 19:03] VITALS: BP 164/75; PULSE 71; TEMP 97.8
--- NOTE | 2023-09-11 19:52 | NUR ---
RECEIVED CHANGE OF SHIFT REPORT FROM DAY SHIFT NURSE. PATIENT UP IN CHAIR, EXIT ALARM ON, CALL LIGHT WITHIN PATIENT'S REACH. NO NEEDS REPORTED AT TIME OF REPORT.
--- NOTE | 2023-09-11 20:00 | NUR ---
PATIENT WITH STEADY GAIT, OBSERVED NO PROBLEMS WITH SWALLOWING PILLS WHOLE OR DRINKING THIN LIQUIDS. DENIES CHEST PAIN, SHORTNESS OF AIR/NAUSEA AT THIS TIME. UP IN CHAIR WITH EXIT ALARM ON, CALL LIGHT WITHIN PATIENT'S REACH.
[2023-09-12 05:59] VITALS: BP 152/71; PULSE 69; TEMP 98.2
[2023-09-12 06:34] VITALS: BP_SYST 152
--- NOTE | 2023-09-12 07:28 | NUR ---
CHANGE OF SHIFT REPORT GIVEN TO DAY SHIFT NURSEMARV.
[2023-09-12] MEDS ORDERED: LIPITOR 40MG TA40 MG PO (08:59)
[2023-09-12] MEDS ORDERED: PLAVIX 75MG TAB75 MG PO (08:59)
[2023-09-12] MEDS ORDERED: Lisinopril 10 MG TAB PO SCH (09:00)
[2023-09-12] MEDS ORDERED: ASPIRIN E.C. 8181 MG PO (09:00)
[2023-09-12] MEDS ORDERED: ZESTRIL30 MG PO (09:00)
[2023-09-12] MEDS ORDERED: APRESOLINE 25MG25 MG PO (09:00)
--- NOTE | 2023-09-12 09:12 | NUR ---
Pt resting in chair with no pain, A/o x4, and steady gait to the bathroom with SBA and walker. Pt tolerating deit well, no needs at this time, pt ready for discharge. Will continue to monitor.
--- NOTE | 2023-09-12 10:54 | NUR ---
toll test worker met with pt to check-in and assess for any needs prior to discharge today. Pt has no questions or concerns. SW inquired about which [facility] location she would like to go to. She chose [facility]. SONAL faxed over discharge orders and demographics to assist pt. She will be scheduled for 09/23/23 at 4:15pm, this is the earliest they have. SONAL informed Director Vee Chavez. Discharge Plan: home today with OP PT
--- NOTE | 2023-09-12 11:19 | NUR ---
Discharge instructions provided to pt at this time. Discussed follow up appointments, new medications, and keeping a daily log of blood pressure readings. No futher questions at this time. Pt and belongings escorted out of building.
--- NOTE | 2023-09-12 14:11 | NUR ---
Discharge QIM scores were reviewed by the team. Code of 6 chosen for sit to stand was determined by team discussion to be the most usual performance for this patient during the discharge assessment period. Code of 6 chosen for chair to bed was determined by team discussion to be the most usual performance for this patient during the discharge assessment period. Code of 6 chosen for walking 10 feet was determined by team discussion to be the most usual performance for this patient during the discharge assessment period. Code of 6 chosen for walking 50 feet w/ 2 turns was determined by team discussion to be the most usual performance before interventions for this patient during the discharge assessment period.--Vee Chavez, PD
== END 2023-09-12 11:20 | disposition home or self-care (01) | DRG 57 ==
PROVIDERS: ADMIT Physical Medicine & Rehabilitation Sports Medicine
DX: I69.351 Hemiplegia and hemiparesis following cerebral infarction affecting right dominant side (principal); R26.89 Other abnormalities of gait and mobility; I10 Essential (primary) hypertension; I69.318 Other symptoms and signs involving cognitive functions following cerebral infarction; E03.9 Hypothyroidism, unspecified; E87.6 Hypokalemia; R42 Dizziness and giddiness; Z74.09 Other reduced mobility; Z79.899 Other long term (current) drug therapy; Z79.82 Long term (current) use of aspirin
CPT/HCPCS: A9284

== ENCOUNTER 2023-10-28 09:43 | Observation (INO) | payer MEDICARE, BC ==
[~2023-10-28] VITALS: Ht 152.4 cm; Wt 55.1 kg
[~2023-10-28 09:43] MED LIST changes: +APRESOLINE 25MG25 MG PO; +LIPITOR 10MG10 MG PO; +ZESTRIL30 MG PO
[2023-10-28] MEDS ORDERED: NS 1,000 ML IV ONE (10:15)
[2023-10-28 10:42] LABS: BASO # 0.1 K/mm3 (0.0-0.2); EOS # 0.3 K/mm3 (0.0-0.7); EOS % 3.4 % (0.0-4.0); GRAN # 6.8 K/mm3 (1.4-6.5); GRAN % 72.8 % (42.2-75.2); HEMATOCRIT 39.5 % (37.0-47.0); HEMOGLOBIN 12.8 g/dl (12.5-16.0); LYMPH # 1.5 K/mm3 (1.2-3.4); LYMPH % 15.7 % (20.0-51.0); MEAN CELL VOLUME 96 fl (80.0-100.0); MEAN CORPUSCULAR HEMOGLOBIN 31 pg (27-31); MEAN CORPUSCULAR HGB CONC 32 g/dl (33.0-37.0); MEAN PLATELET VOLUME 10.3 fl (7.4-10.4); MONO # 0.6 K/mm3 (0.1-0.6); MONO % 6.7 % (1.7-9.3); PLATELET COUNT 312 K/mm3 (130-400); RED BLOOD COUNT 4.11 M/mm3 (4.10-5.30); REDCELL DISTRIBUTION WIDTH-CV 13.8 % (11.5-14.5)
[2023-10-28 10:52] LABS: INR 1.1 (0.8-3.0); PROTHROMBIN TIME 12.1 SECONDS (9.7-12.8)
[2023-10-28 10:58] LABS: ALANINE AMINOTRANSFERASE 14 U/L (0-55); ALBUMIN 3.6 g/dL (3.4-4.8); ALKALINE PHOSPHATASE 80 U/L (40-150); ANION GAP 10 mmol/L (7-16); AST,SGOT 20 U/L (5-34); BILIRUBIN,TOTAL 0.5 mg/dL (0.2-1.2); BLOOD UREA NITROGEN 16 mg/dL (10-20); CALCIUM 9.1 mg/dL (8.4-10.2); CHLORIDE 106 mEq/L (98-107); CREATININE, serum 0.76 mg/dL (0.57-1.11); GLUCOSE 98 mg/dL (70-99); POTASSIUM 3.9 mEq/L (3.5-4.5); SODIUM 141 mEq/L (136-145); TOTAL PROTEIN 6.1 g/dl (6.2-8.1)
[2023-10-28 11:04] LABS: TROPONIN-I < 0.010 ng/mL (0.00-0.033)
[2023-10-28] MEDS ORDERED: Meclizine 25 MG TAB PO ONE (11:30)
[2023-10-28] MEDS ORDERED: hydrALAZINE 20 MG/ML 1 ML VIAL IV ONE ×2 (12:00→12:45)
[2023-10-28] MEDS ORDERED: Iohexol 300 - 100 ML VIAL IV ONE (12:01)
[2023-10-28] MEDS ORDERED: NS 100 ML IV SCH (12:02)
[2023-10-28 12:10] LABS: COLLECTION METHOD CLEAN CATCH
[2023-10-28 12:21] LABS: URINE APPEARANCE CLEAR (CLEAR/HAZY); URINE COLOR YELLOW (YELLOW); URINE PROTEIN(semi-quant) NEGATIVE (NEGATIVE)
[2023-10-28 12:22] LABS: URINE BLOOD NEGATIVE (NEGATIVE); URINE GLUCOSE NEGATIVE (NEGATIVE); URINE KETONE NEGATIVE (NEGATIVE); URINE NITRATE NEGATIVE (NEGATIVE); URINE UROBILINOGEN 0.2 E.U/dL (0.2-1.0)
[2023-10-28 14:19] VITALS: BP 147/65; PULSE 77; TEMP 97.8
[2023-10-28] MEDS ORDERED: CRESTOR 10MG10 MG PO (14:27)
[2023-10-28] MEDS ORDERED: ANTIVERT 25MG25 MG PO (14:29)
[2023-10-28] MEDS ORDERED: VITAMIN D31000 IU PO (14:29)
[2023-10-28] MEDS ORDERED: *Potassium Replacement Protocol MC SCH (14:45)
[2023-10-28] MEDS ORDERED: Lisinopril 5 MG TAB PO SCH (15:22)
[2023-10-28] MEDS ORDERED: Clopidogrel 75 MG TAB PO SCH (15:23)
[2023-10-28] MEDS ORDERED: Meclizine 25 MG TAB PO PRN (15:30)
[2023-10-28 16:55] VITALS: BP_SYST 147
[2023-10-28] MEDS ORDERED: hydrALAZINE 25 MG TAB PO SCH (17:00)
[2023-10-28 17:35] VITALS: BP 165/65
[2023-10-28 19:36] VITALS: BP 132/65; PULSE 80; TEMP 98.1
[2023-10-28 20:55] VITALS: BP_SYST 120
[2023-10-28] MEDS ORDERED: Atorvastatin 40 MG TAB PO SCH (21:00)
[2023-10-28 23:54] VITALS: BP 120/61; PULSE 87; TEMP 99.2
[2023-10-29] VITALS (11 sets, daily range): BP systolic 120–150; BP diastolic 61–71; PULSE 57–82; TEMP 97.8–98.8
[2023-10-29 07:05] LABS: BASO # 0.1 K/mm3 (0.0-0.2); BASO % 0.9 % (0.0-2.0); EOS # 0.3 K/mm3 (0.0-0.7); GRAN # 7.5 K/mm3 (1.4-6.5); GRAN % 74.9 % (42.2-75.2); HEMOGLOBIN 11.4 g/dl (12.5-16.0); LYMPH # 1.3 K/mm3 (1.2-3.4); MEAN CELL VOLUME 94 fl (80.0-100.0); MEAN CORPUSCULAR HEMOGLOBIN 31 pg (27-31); MEAN CORPUSCULAR HGB CONC 33 g/dl (33.0-37.0); MEAN PLATELET VOLUME 10.1 fl (7.4-10.4); MONO # 0.8 K/mm3 (0.1-0.6); MONO % 7.8 % (1.7-9.3); PLATELET COUNT 265 K/mm3 (130-400); RED BLOOD COUNT 3.68 M/mm3 (4.10-5.30); REDCELL DISTRIBUTION WIDTH-CV 14.1 % (11.5-14.5)
[2023-10-29 07:06] LABS: HEMATOCRIT 34.4 % (37.0-47.0)
[2023-10-29 07:30] LABS: ALBUMIN 2.9 g/dL (3.4-4.8); CALCIUM 8.4 mg/dL (8.4-10.2); CREATININE, serum 0.74 mg/dL (0.57-1.11); MAGNESIUM 1.8 mg/dL (1.6-2.6); PHOSPHOROUS 3.1 mg/dL (2.3-4.7); POTASSIUM 3.6 mEq/L (3.5-4.5)
[2023-10-29] MEDS ORDERED: Potassium Bicarbonate/Citrate 20 MEQ Effervescent TAB PO SCH (07:45)
[2023-10-29] MEDS ORDERED: Lisinopril 10 MG TAB PO ONE (11:45)
[2023-10-29] MEDS ORDERED: Acetaminophen 500 MG TAB PO PRN (16:15)
[2023-10-29] MEDS ORDERED: Lisinopril 10 MG TAB PO SCH (21:00)
[2023-10-30] VITALS (7 sets, daily range): BP systolic 127–153; BP diastolic 57–75; PULSE 64–73; TEMP 97.8–98.1
[2023-10-30 07:17] LABS: BASO # 0.1 K/mm3 (0.0-0.2); EOS # 0.5 K/mm3 (0.0-0.7); EOS % 7.3 % (0.0-4.0); GRAN # 4.3 K/mm3 (1.4-6.5); GRAN % 60.4 % (42.2-75.2); HEMOGLOBIN 11.7 g/dl (12.5-16.0); LYMPH # 1.6 K/mm3 (1.2-3.4); LYMPH % 22.1 % (20.0-51.0); MEAN CELL VOLUME 95 fl (80.0-100.0); MEAN CORPUSCULAR HEMOGLOBIN 31 pg (27-31); MEAN CORPUSCULAR HGB CONC 33 g/dl (33.0-37.0); MEAN PLATELET VOLUME 10.2 fl (7.4-10.4); MONO # 0.6 K/mm3 (0.1-0.6); MONO % 8.8 % (1.7-9.3); PLATELET COUNT 280 K/mm3 (130-400); RED BLOOD COUNT 3.76 M/mm3 (4.10-5.30); REDCELL DISTRIBUTION WIDTH-CV 14.1 % (11.5-14.5)
[2023-10-30 07:21] LABS: HEMATOCRIT 35.6 % (37.0-47.0)
[2023-10-30 07:36] LABS: CALCIUM 8.6 mg/dL (8.4-10.2); CREATININE, serum 0.7 mg/dL (0.57-1.11); MAGNESIUM 1.8 mg/dL (1.6-2.6); POTASSIUM 3.8 mEq/L (3.5-4.5)
[2023-10-30] MEDS ORDERED: Potassium Bicarbonate/Citrate 20 MEQ Effervescent TAB PO ONE (08:15)
[2023-10-30] MEDS ORDERED: PRINIVIL10 MG PO (10:29)
== END 2023-10-30 14:30 | disposition home or self-care (01) ==
LOC: COL.ER 09:43 → MEDICAL 13:24 → EDBEDREQ 13:28 → MEDICAL 17:45
PROVIDERS: Internal Medicine; Physician Assistant; ADMIT Internal Medicine
DX: I16.0 Hypertensive urgency (principal); R42 Dizziness and giddiness; I10 Essential (primary) hypertension; R63.4 Abnormal weight loss; E44.0 Moderate protein-calorie malnutrition; E03.9 Hypothyroidism, unspecified; R00.1 Bradycardia, unspecified; H81.09 Meniere's disease, unspecified ear; E78.5 Hyperlipidemia, unspecified; Z86.73 Personal history of transient ischemic attack (TIA), and cerebral infarction without residual deficits; Z79.899 Other long term (current) drug therapy; Z79.890 Hormone replacement therapy
CPT/HCPCS: G0378; J0360; J7030; Q9967